=== PATIENT | female | born 1945 | race Two or more races ===

== ENCOUNTER → 2017-06-14 | Outpatient (CLI) | payer OTHER, MEDICAID ==
[~2017-06-14] VITALS: Ht 162.6 cm; Wt 121.6 kg
[~2017-06-14] MED LIST: ADENOSINE 102 MG in GIVE UN-DILUTED 0 ML IV ONE; ADENOSINE 90 MG/30 ML INJ IV ONE
== END | disposition home or self-care (01) ==
LOC: Rad HDHVI 09:57
PROVIDERS: ATTEND Internal Medicine
DX: I47.1 Supraventricular tachycardia (principal); R63.8 Other symptoms and signs concerning food and fluid intake; I10 Essential (primary) hypertension; I47.2 Ventricular tachycardia; R42 Dizziness and giddiness; I49.9 Cardiac arrhythmia, unspecified; E03.9 Hypothyroidism, unspecified; R00.2 Palpitations
CPT/HCPCS: 78452; 93005; 96374; 96375; A9500; J0153

== ENCOUNTER → 2017-07-19 | Outpatient (CLI) | payer OTHER, MEDICAID | END | disposition home or self-care (01) | LOC: Rad HDHVI 10:56 | PROVIDERS: ATTEND Internal Medicine | DX: I10 Essential (primary) hypertension (principal); I47.2 Ventricular tachycardia; I47.1 Supraventricular tachycardia; I07.1 Rheumatic tricuspid insufficiency; E03.9 Hypothyroidism, unspecified | CPT/HCPCS: 93306 ==